=== PATIENT | female | born 1990 | race Caucasian/White ===

== ENCOUNTER 2020-02-10 11:39 | Outpatient (CLI) | payer OTHER, SELFPAY ==
[2020-02-10 12:21] LABS: Hematocrit 39.3 % (37.0-47.0); Hemoglobin 13.5 g/dL (12.0-15.0); Mean Corpuscular HGB Conc 34.4 g/dl (32-36); Mean Corpuscular Hemoglobin 30.5 pg (26-34); Mean Corpuscular Volume 88.7 fl (80-100); Platelet Count Result 143 k/mm3 (150-375); Red Blood Count 4.43 M/mm3 (4.2-5.4); Red Cell Distribution Width 13.3 % (11.5-14.5); White Blood Count 9.5 K/mm3 (4.5-10.0)
[2020-02-12 09:26] LABS: Rapid Plasma Reagin Non-Reactive (NonReactive)
== END 2020-02-10 11:40 | disposition home or self-care (01) ==
PROVIDERS: Visit Provider Obstetrics & Gynecology
DX: Z34.93 Encounter for supervision of normal pregnancy, unspecified, third trimester (principal); Z3A.00 Weeks of gestation of pregnancy not specified
CPT/HCPCS: 36415; 85027; 86592; 86900; 86901

== ENCOUNTER 2020-02-12 05:39 | Inpatient (IN) | payer OTHER, SELFPAY ==
--- NOTE | 2020-02-11 11:41 | WPDANESEPP ---
Anes - Eval Pre Procedure Procedure: Operation Date: 02/12/20 07:30 Proposed Procedures p Repeat Section - Teddy Riojas MD Date/Time: 02/11/20 11:41 Pre Op Diagnosis: c section Patient Data Age: 29 Gender: F Height: Weight: Allergies Allergy/AdvReac Type Severity Reaction Status Date / Time No Known Allergies Allergy Unverified 08/14/17 12:34 Home Medications Medication Instructions Recorded Confirmed Type PNV cmb#95-ferrous fumarate-FA 1 tablet PO DAILY 01/19/20 01/19/20 History [] Patient hx anesthesia problems: none Family hx anesthesia problems: none PMFSH Past Medical History Medical History Back pain Psoriasis Family History Family History Other No pertinent family history Social History Social History Smoking status: Never smoker Second hand tobacco smoke exposure: No Alcohol intake: never Substance use: never Gender identity (if verbalized by the patient): Female Spiritual care concerns: No Exam Day of Procedure 02/11/20 11:41
[2020-02-12] VITALS (59 sets, daily range): BP systolic 89–129; BP diastolic 22–76; PULSE 60–145; RESP 11–20; TEMP 36.3–36.6; O2SAT 98–100; BMI 30.6
[2020-02-12] MEDS: LACTATED RINGERS 1,000 ML 125 ML IV CONT ×2 (06:16→06:59)
--- NOTE | 2020-02-12 06:29 | LDADM ---
This patient, Emily Early, was admitted to Labor/Delivery/Recovery 120 on 02/12/20 at 05:39. Plans for labor, pain management and were discussed with patient. Patient/family oriented to hospital policies and general routines including ID bracelet, bed and alarms, visiting hours, pain management, procedures, bathroom and other care routines, personal items, smoking policy, room service/diet and guest tray routines, infant security routines, and visiting hours. Patient/Family are encouraged to report perceived risks to care and to ask questions if they do not understand what they are told or what they should do. See OBIX for further documentation.
--- NOTE | 2020-02-12 07:02 | WPDANESEFPP ---
Anes - Eval Final PreProcedure Day of Procedure 02/12/20 07:02 Patient weight: overweight Heart: regular rate and rhythm Lungs: clear to auscultation Airway: Mallampati scale class II Neurological: alert and oriented Last oral intake: >/= 8 hours ASA classification: II Emergent: no Anesthetic plan: proceed Anesthesia type and monitoring: regional spinal and standard monitoring Informed Consent: The patient's anesthetic plan and its attendant risks and benefits were discussed with the patient/family/POA. Questions were solicited and answers provided to the satisfaction of the patient/family/POA.
--- NOTE | 2020-02-12 07:14 | PM.IMHP ---
H&P: HPI History of Present Illness Chief complaint: c section Narrative: Emily Early is a 29 year old female 2 para 1001 at 39 weeks gestation who presents for repeat delivery. She has a history of 1 previous delivery. She has no other complaints. She reports good movement. She denies any nausea, vomiting, fever, chills. She denies any chest pain or shortness of breath. She denies any loss of fluid, vaginal bleeding, contractions. Review of Systems Constitutional: Constitutional: Reports no additional constitutional complaints, Denies fatigue, Denies headache(s), Denies lethargy and Denies weakness Eyes: Eyes: Reports no additional eye complaints, Denies blurry vision and Denies photophobia ENT: Reports as per HPI, Denies headache(s) and Denies neck pain Cardiovascular: Cardiovascular: Denies chest pain, Denies diaphoresis, Denies leg edema, Denies palpitations and Denies dyspnea Respiratory: Respiratory: Denies hemoptysis, Denies dyspnea and Denies wheezing Gastrointestinal: Gastrointestinal: Denies abdominal pain, Denies melena, Denies bloating, Denies hematochezia, Denies nausea and Denies vomiting Genitourinary: Genitourinary: Reports no additional female genitourinary complaints Musculoskeletal: Musculoskeletal: Denies joint swelling, Denies neck pain, Denies numbness and Denies stiffness Neurologic: Denies Abnormal speech present, Denies confusion, Denies headache(s), Denies numbness and Denies weakness Psychiatric: Psychiatric: Denies anxiety, Denies confusion, Denies depression, Denies homicidal ideation and Denies suicidal ideation Endocrine: Endocrine: Denies fatigue and Denies palpitations Allergic/Immunologic: Allergic/Immunologic: Denies wheezing PMFSH Past Medical History Medical History Back pain Psoriasis Family History Family History Other No pertinent family history Social History Social History Smoking status: Never smoker Second hand tobacco smoke exposure: No Alcohol intake: never Substance use: never Gender identity (if verbalized by the patient): Female Spiritual care concerns: No Meds Home Medications and Allergies Home Medications Medication Instructions Recorded Confirmed Type PNV cmb#95-ferrous fumarate-FA 1 tablet PO DAILY 01/19/20 01/19/20 History [] Allergies Allergy/AdvReac Type Severity Reaction Status Date / Time No Known Allergies Allergy Unverified 08/14/17 12:34 Vital Signs Vital Signs - 24 hr 02/12/20 05:53 02/12/20 06:01 02/12/20 06:16 Pulse Rate 86 94 93 Blood Pressure 129/68 111/67 116/73 02/12/20 06:31 02/12/20 06:46 Pulse Rate 78 78 Blood Pressure 114/76 112/75 Exam Const: General: healthy appearing, comfortable and no acute distress; No confusion Orientation/consciousness: No confusion Eyes: Direct Ophthalmoscopy: No photophobia Resp: Auscultation: clear to auscultation bilaterally, no rales, no rhonchi and no wheezes Cardio: Rate: regular rate Heart sounds: no click, no murmurs and no rubs GI: Inspection: non-distended GI Palp: No abdominal tenderness Auscultation: normal bowel sounds Neuro: General: No confusion Speech: No Abnormal speech present Extrem: General: normal to inspection, no pedal edema and no calf tenderness Assessment and Plan Assessment and plan (1) Previous section: Code(s): Z98.891 - History of uterine scar from previous surgery Status: Acute (2) Term : Code(s): Z34.90 - Encounter for supervision of normal , unspecified, unspecified trimester Status: Acute Assessment and Plan: This patient is a 29-year-old multiparous female at term with a history of previous . We have agreed to repeat the
[2020-02-12] MEDS: ceFAZolin 2 GM/D5W 50 ML 2 GM/50 ML BAG IVPB (07:37)
--- NOTE | 2020-02-12 08:15 | P.OP_ITS ---
Procedure Note - Detailed Date of procedure: 02/12/20 Pre-op diagnosis: c section Post-op diagnosis: same Procedure performed: low-transverse delivery Description of procedure: The patient was taken the operating room. She was prepped and draped in the dorsal supine position with leftward tilt after induction of spinal anesthetic. When anesthesia was found to be adequate a low- transverse skin incision was made and carried down to the level the fascia with the knife. The fascial incision was made at the midline with a scalpel. The fascial incision was extended laterally with King scissors. The fascia was tented upward superior and inferior with Chacorta clamps. The rectus muscles were dissected off bluntly. The rectus muscles at the midline. The preperitoneal fat was dissected bluntly at the superior aspect of the separate the rectus muscles. The peritoneal cavity was entered bluntly in the same area. The peritoneal incision was extended superior and inferior with good visualization of bladder. Bladder blade was inserted. A low-transverse incision was made on the uterus with the scalpel. It was carried down the level of the amniotic cavity with a knife. The amniotic cavity bluntly. The uterine incision was made laterally with blunt traction. The infant was delivered. The cord was clamped and cut. The was handed off to waiting pediatric staff. Cord bloods were obtained. The placenta was removed manually. The uterus was exteriorized. Uterus cleared of all clots and debris. Uterus closed in 0 Vicryl in a running locked fashion. An imbricating layer of 0 Vicryl was also placed on the to bolster the closure. The uterus was returned to the abdomen. The gutters were cleared of all clots and debris. The fascia was closed 0 Vicryl in a running fashion. Subcutaneous tissue was irrigated and bleeding areas were cauterized. The skin was closed with subcuticular absorbable mónica. The incision was covered with derma connell. The patient tolerated the procedure well. She was taken recovery room stable condition. Sponge, lap, needle counts were correct x2. Anesthesia: spinal Surgeon: Teddy Riojas MD Estimated blood loss (mL): 1,125 Drains: No Packing: No Pathology: none sent Complications: No immediate complications Condition: stable Disposition: floor Findings: Normal maternal anatomy. Average size with normal Apgars. No gross evidence of abruption.
[2020-02-12] MEDS: OXYTOCIN 30 UNITS/NS 500 ML 30 UNITS/500 ML BAG 125 UNITS (08:42)
[2020-02-12] MEDS: OXYTOCIN 30 UNITS/NS 500 ML 30 UNITS/500 ML BAG 125 UNITS IV CONT (08:45)
--- NOTE | 2020-02-12 12:30 | PC.NURSE ---
Mother called out for observation of latch. Mother reports struggling with latch with first child. Reviewed feeding cues, frequencies, duration of feedings, feeding elimination flow sheet, and signs of adequate intake. Demonstrated stimulation techniques to wake for feeding. Assisted with infant to breast. Reviewed positioning/alignment in cross cradle, holding breast in U hold and guided asymmetrical latch on. Discussed rational for each. Infant was able to latch correctly. nursed eagerly, with steady draws and frequent swallowing noted. Reviewed signs of a correct latch, effective nursing and suck swallow ratio. Advised to stimulate to keep infant awake and nursing effectively for increased intake and assist in maintaining deep latch. was able to maintain latch without discomfort to mother. Nipple care reviewed. Instructed mother to call out for RN assistance if she is unable to latch infant for feeding or she has discomfort with nursing. Instructed feeding should be initiated three hours from start of last feeding or if feeding cues are noted before. Mother voiced understanding of information shared.
[2020-02-12] MEDS: DEXTROSE 5%/0.45% SOD CHL 1,000 ML 125 ML IV CONT (13:28)
--- NOTE | 2020-02-12 15:10 | PC.NURSE ---
Mother called out for assist with latch. Demonstrated stimulation techniques to wake infant for feeding. Assisted with to breast. Reviewed positioning/alignment in cross cradle, holding breast in U hold and guided asymmetrical latch on. Discussed rational for each. Several attempts before infant was able to latch correctly and without discomfort to mother. nursed eagerly with steady draws and occasional swallowing for short bursts followed with pausing and falling asleep. Switched to football positioning. Infant more awake and nursing consistently. Advised to stimulate to keep infant awake and nursing effectively for increased intake and assist in maintaining deep latch. Infant was able to maintain latch without discomfort to mother. Nipple care reviewed. Instructed mother to call out for RN assistance if she is unable to latch infant for feeding or she has discomfort with nursing. Instructed feeding should be initiated three hours from start of last feeding or if feeding cues are noted before. Mother voiced understanding of information shared.
[2020-02-12] MEDS: MULTIVIT/MIN/PREN/FOL AC/IRON TABLET 1 TAB PO (15:24)
[2020-02-12] MEDS: DOCUSATE SODIUM 100 MG CAPSULE PO (15:24)
[2020-02-12] MEDS: ACETAMINOPHEN 325 MG TABLET 650 MG PO (17:26)
[2020-02-12] MEDS: IBUPROFEN 600 MG TABLET PO (17:26)
[2020-02-13 00:50] VITALS: BP 109/61; PULSE 66; RESP 14; TEMP 36.1; O2SAT 100
[2020-02-13] MEDS: IBUPROFEN 600 MG TABLET PO ×4 (03:34→23:30)
[2020-02-13 05:00] VITALS: BP 107/69; PULSE 67; RESP 14; TEMP 36.2; O2SAT 100
[2020-02-13 05:37] LABS: Basophils Percent Auto 0.3 % (0.2-1.2); Eosinophils Percent Auto 0.2 % (0-4.4); Hematocrit 31.3 % (37.0-47.0); Hemoglobin 10.6 g/dL (12.0-15.0); Immature Granulocyte Absolute 0.08 K/mm3 (0.00-0.031); Immature Granulocyte Percent A 0.7 % (0-0.5); Lymphocytes Absolute Auto 1.15 K/mm3 (0.9-3.2); Lymphocytes Percent Auto 9.7 % (18.3-44.2); Mean Corpuscular HGB Conc 33.9 g/dl (32-36); Mean Corpuscular Volume 88.7 fl (80-100); Mean Platelet Volume 12.2 fl (7.4-10.4); Monocytes Absolute Auto 0.7 K/mm3 (0.1-0.6); Monocytes Percent Auto 5.6 % (2.6-8.5); Neutrophils Absolute Auto 9.9 K/mm3 (1.3-6.7); Neutrophils Percent Auto 83.5 % (45.5-73.1); Platelet Count Result 117 k/mm3 (150-375); Red Blood Count 3.53 M/mm3 (4.2-5.4); Red Cell Distribution Width 13.4 % (11.5-14.5); White Blood Count 11.9 K/mm3 (4.5-10.0)
--- NOTE | 2020-02-13 07:58 | PM.OBPNVD ---
OB - PN: Subj Subjective Date/time seen: 02/13/20 07:58 Patient comments: no complaints, pain well controlled, tolerating diet and flatus present OB - PN: Obj Data Labs CBC & Chem 7: 02/13/20 05:14 Labs: Laboratory Results - last 24 hr 02/13/20 05:14 WBC 11.9 H RBC 3.53 L Hgb 10.6 L Hct 31.3 L MCV 88.7 MCH 30.0 MCHC 33.9 RDW 13.4 Plt Count 117 L MPV 12.2 H Immature Gran % (Auto) 0.7 H Neut % (Auto) 83.5 H Lymph % (Auto) 9.7 L [place] % (Auto) 5.6 Eos % (Auto) 0.2 Baso % (Auto) 0.3 Lymph # (Auto) 1.15 [place] # (Auto) 0.7 H Eos # (Auto) 0.0 Baso # (Auto) 0.0 Abs Immat Gran (auto) 0.08 H Absolute Neuts (auto) 9.9 H Absolute Nucleated RBC 0.0 Nucleated RBC % 0.0 OB - PN A/P Plan day: 1 Comments: Post Op LTCS - no problems, routine recovery Time Spent With Patient Time: Total time spent is greater than 50% in coordination of care (as documented) at patient's floor/unit and/or counseling patient: Exam Const: General: cooperative, healthy appearing, comfortable and no acute distress Resp: Auscultation: no crackles, no rales, no rhonchi and no wheezes Cardio: Rhythm: regular rhythm Heart sounds: no click and no murmurs GI: Inspection: non-distended Auscultation: normal bowel sounds Extrem: General: normal to inspection, no pedal edema and no calf tenderness
[2020-02-13] MEDS: SIMETHICONE 80 MG TAB.CHEW PO ×2 (07:59→17:32)
[2020-02-13] MEDS: DOCUSATE SODIUM 100 MG CAPSULE PO ×2 (07:59→17:32)
[2020-02-13] MEDS: MULTIVIT/MIN/PREN/FOL AC/IRON TABLET 1 TAB PO (07:59)
[2020-02-13 08:00] VITALS: BP 124/71; PULSE 56; RESP 20; TEMP 36.5
--- NOTE | 2020-02-13 13:00 | PC.NURSE ---
Mother called out for assist with feeding. Mother reports she struggles with latching correctly. Demonstrated stimulation techniques to wake infant for feeding. Assisted with infant to breast. Reviewed positioning/alignment in football, holding breast in C hold and guided asymmetrical latch on. was able to latch correctly with first attempt. Mother reports slight tenderness with this feeding. nursed eagerly, with steady draws and frequent swallowing noted. Reviewed signs of a correct latch, effective nursing and suck swallow ratio. Infant was able to maintain latch without discomfort to mother. Nipple care reviewed. Suggested mother stimulate to keep awake and nursing effectively to increase intake and assist with maintaining deep latch. Demonstrated how to adjust latch more deeply while feeding. Instructed mother to call out for RN assistance if she is unable to latch infant for feeding or she has discomfort with nursing. Instructed feeding should be initiated three hours from start of last feeding or if feeding cues are noted before. Mother voiced understanding of information shared.
--- NOTE | 2020-02-13 14:10 | WPDANLDNPN2 ---
Anes-Prog Note L&D-Neuraxial Date/Time: 02/13/20 14:10 Neuraxial medications: intrathecal PF morphine Opiod-related complaints: none Patient feedback: Patient satisfied with post-operative pain management.
--- NOTE | 2020-02-13 14:10 | WPDANLDPN2 ---
Anes-Prog Note L&D Date/Time: 02/13/20 14:10 Comfortable throughout: section Neuraxial method: spinal Epidural/Spinal procedure site: clean & non-tender Neuro status: Neuro function grossly intact. Cardiovascular status: normal Respiratory status: normal Airway patency: baseline Mental status: baseline Post-Op hydration status: normal Vital Signs: Last Vital Signs Temp 36.5 C 02/13/20 08:00 Pulse 56 L 02/13/20 08:00 Resp 20 02/13/20 08:00 BP 124/71 02/13/20 08:00 Pulse Ox 100 02/13/20 05:00 I/O: Intake & Output 02/12/20 02/13/20 02/13/20 23:59 07:59 15:59 Intake Total 1250 1250 1600 Output Total 850 2100 600 Balance 400 -850 1000 Post-procedural complaints: none Patient feedback: Patient satisfied with anesthetic care.
[2020-02-13 20:20] VITALS: BP 119/72; PULSE 65; RESP 16; TEMP 36.8; O2SAT 100
--- NOTE | 2020-02-14 07:24 | PM.OBPNVD ---
OB - PN: Subj Subjective Date/time seen: 02/14/20 07:24 Patient comments: no complaints baby status: doing well OB - PN: Obj Data Labs CBC & Chem 7: 02/13/20 05:14 OB - PN A/P Plan day: 2 Plan: discharge home Time Spent With Patient Time: Total time spent is greater than 50% in coordination of care (as documented) at patient's floor/unit and/or counseling patient: Exam Const: General: comfortable Resp: Effort & Inspection: normal respiratory effort Psych: Appearance: grossly normal Affect: normal affect
--- NOTE | 2020-02-14 07:25 | PM.OBDSVD ---
DS: Diagnosis Admitting Diagnosis Admitting Diagnosis: History of uterine scar from previous surgery OB - DS: Summary OB Procedures : None OB Procedures Intrapartum: OB Procedures: : None Peripartum Data Procedures: Procedures Operation Date: 02/12/20 07:30 Actual Procedures Side Surgeon p Repeat Section Teddy Riojas MD Time Spent with Patient Time attestation: Total time spent providing and/or coordinating discharge services: Discharge Plan Discharge Attending physician on discharge: Teddy Riojas Discharging Clinician: Sofia Dela Cruz Patient Disposition: Home, Self-Care Activity: pelvic rest Diet: regular Wound Care Instructions: follow printed instructions Patient Instructions: Antibiotic Form Stand Alone Forms: General Discharge Information Follow-up/Referrals: Teddy Riojas MD [Family Provider] - 1 Week Discharge Medications: New hydrocodone-acetaminophen 5-325 mg Tablet 1 tab PO Q3H PRN (Reason: Moderate Pain (4-6)) Qty: 15 RF: 0 Continued PNV cmb#95-ferrous fumarate-FA [] 28 mg iron- 800 mcg Tablet 1 tablet PO DAILY RF: 0 Date of admission: 02/12/20 05:39 Primary Care Provider: UNKNOWN,DOCTOR Admitting Provider: Teddy Riojas Attending physician on admission: Teddy Riojas
[2020-02-14 08:20] VITALS: BP 126/71; PULSE 72; RESP 18; TEMP 37.1; O2SAT 100
--- NOTE | 2020-02-14 09:30 | PC.NURSE ---
Mother is able to independently latch infant with appropriate positioning/alignment. She denies any nipple discomfort, is feeding as required and waking to feed if needed. has had 8 effective feedings in the past 24 hours, and is currently meeting outcomes for weight, output, jaundice and feeding frequencies. Mother states she feels confident to continue effective at home and states her milk is transitioning in. Reviewed transition to breast milk, signs of adequate intake, and engorgement/relief. Instructed to call ICP if intake/output less than required. Reviewed regular medications mother is taking. Information provided per Mia. Reviewed community resources on the [facility] website and in the Mom/Baby guide. Information on outpatient services provided. Mother has no further questions at this time.
[2020-02-14] MEDS: MULTIVIT/MIN/PREN/FOL AC/IRON TABLET 1 TAB PO (09:42)
[2020-02-14] MEDS: DOCUSATE SODIUM 100 MG CAPSULE PO (09:42)
--- NOTE | 2020-02-14 11:51 | PC.NURSE ---
Mom and dad watched discharge video prior to leaving.
[2020-02-15 08:32] VITALS: BP 111/65; PULSE 65; RESP 20; TEMP 36.7
== END 2020-02-14 11:32 | disposition home or self-care (01) | DRG 788 ==
LOC: ANHLDR 05:57 → ANHOB2 10:50
PROVIDERS: Admitting Provider Obstetrics & Gynecology; Family Provider Obstetrics & Gynecology; Visit Provider Obstetrics & Gynecology
PROC: 10D00Z1 Extraction of Products of Conception, Low, Open Approach (ICD-10-PCS; CPT 59514; principal; 2020-02-12 07:30)
DX: O34.211 Maternal care for low transverse scar from previous cesarean delivery (principal); Z3A.39 39 weeks gestation of pregnancy; Z37.0 Single live birth; O69.81X0 Labor and delivery complicated by cord around neck, without compression, not applicable or unspecified; Z23 Encounter for immunization
CPT/HCPCS: 36415; 85025; A9270; J0131; J0690; J1200; J2274; J2370; J2405; J2590; J7120

== ENCOUNTER → 2020-08-16 16:24 | Outpatient (CLI) | payer OTHER, SELFPAY ==
--- NOTE | ~2020-08-16 | MR_ITS ---
EXAMINATION: MR foot LT wo con DATE: 08/16/2020 17:52 INDICATION: Inferior left heel pain. TECHNIQUE: Magnetic resonance imaging (MRI) of the left foot was performed without intravenous contra st. Sequences included sagittal PD-weighted FS FSE, sagittal PD-weighted FSE, coronal PD-weighted FS FSE, coronal PD-weighted FSE, axial PD-weighted FS FSE, and axial PD-weighted FSE. COMPARISON: None. FINDINGS: Medial ankle ligaments: The superficial and deep components of the deltoid ligament are normal. Lateral ankle ligaments: There are changes of prior sprain of anterior talofibular ligament characterized by increased signal intensity. Calcaneofibular ligament and posterior talofibular ligament are normal. There are changes of prior sprain of anterior tibiofibular ligament characterized by thickening and increased signal in tensity. Posterior tibiofibular ligament is normal. Tendons: The medial and anterior ankle tendons are normal. The peroneal tendons are normal. Achilles tendon is normal. Plantar fascia: There is mild thickening of central band of the plantar fascia. There is a defect in the central band of the plantar fascia. Bones/other: Bone alignment is normal. No fracture. The talar dome is normal. Bone marrow signal intensity is norm al. Fluid: There is no joint effusion. IMPRESSION: 1. Mild plantar fasciitis. A defect in the central band of the plantar fascia is likely from fascioto my. Reviewed, dictated and finalized at location A. IMPRESSION: 1. Mild plantar fasciitis. A defect in the central band of the plantar fascia i s likely from fasciotomy.
== END ==
PROVIDERS: Visit Provider Podiatrist Foot & Ankle Surgery
DX: M79.672 Pain in left foot (principal); M72.2 Plantar fascial fibromatosis
CPT/HCPCS: 73718

== ENCOUNTER → 2023-06-11 07:18 | Outpatient (CLI) | payer BC, SELFPAY ==
--- NOTE | ~2023-06-11 | US_ITS ---
EXAMINATION: US breast LT limited HISTORY: Mass of the lower-outer quadrant of the left breast TECHNIQUE: Limited left breast ultrasound is performed. FINDINGS: No suspicious cystic or solid mass is identified in the area of clinical concern. Normal fi broglandular tissue is seen. IMPRESSION: No specific sonographic correlate is identified for the reported palpable abnormality of concern. Fur ther evaluation at this time should be based on clinical assessment. Continued follow-up physical exa mination is recommended. BI-RADS Category 1: Negative Reviewed, dictated and finalized at location A. IMPRESSION: No specific sonographic correlate is identified for the reported palpable abnor mality of concern. Further evaluation at this time should be based on clinical assessment. Continued follow-up physical examination is recommended. BI-RADS Category 1: Negative
== END ==
DX: N63.23 Unspecified lump in the left breast, lower outer quadrant (principal)
CPT/HCPCS: 76642

== ENCOUNTER 2024-09-11 14:34 | Outpatient (CLI) | payer OTHER, SELFPAY ==
[2024-09-11 14:50] LABS: Hematocrit 37.3 % (37.0-47.0); Hemoglobin 12.7 g/dL (12.0-15.0); Mean Corpuscular Hemoglobin 30.1 pg (26-34); Mean Corpuscular Volume 88.4 fl (80-100); Mean Platelet Volume 12.3 fl (7.4-10.4); Platelet Count Result 129 k/mm3 (150-375); Red Blood Count 4.22 M/mm3 (4.2-5.4); White Blood Count 10.3 K/mm3 (4.5-10.0)
[2024-09-11 17:18] LABS: Rapid Plasma Reagin Non-Reactive (NonReactive)
== END 2024-09-11 14:35 | disposition home or self-care (01) ==
LOC: ANHLAB 14:36
PROVIDERS: Visit Provider Obstetrics & Gynecology
DX: Z34.93 Encounter for supervision of normal pregnancy, unspecified, third trimester (principal); Z3A.00 Weeks of gestation of pregnancy not specified
CPT/HCPCS: 36415; 85027; 86592; 86850; 86900; 86901

== ENCOUNTER 2024-09-12 10:00 | Inpatient (IN) | payer OTHER, SELFPAY ==
[2024-09-12] VITALS (62 sets, daily range): BP systolic 93–126; BP diastolic 45–72; PULSE 58–91; RESP 14–22; TEMP 36.3–36.8; O2SAT 97–100; BMI 32.8
--- NOTE | 2024-09-12 08:45 | P.HP_ITS ---
H&P: HPI History of Present Illness Date/Time: 09/12/24 08:45 Chief Complaint: Here for repeat Narrative: 34 y/o at 39 5/7 weeks with 2 prior deliveries, here for repet. GBS neg. Review of Systems Review of Systems: All systems reviewed & are unremarkable except as noted in HPI and below PMFSH Past Medical History Medical History Back pain Psoriasis Surgical History Surgical History History of x2 History of foot surgery Family History Family History Other Hypertension Diabetes mellitus Other No pertinent family history Social History Social History Smoking status: Never smoker Second hand tobacco smoke exposure: No Alcohol intake: current Substance use: never Occupation/Education: occupation Additional occupation/education comments: Teacher Gender identity (if verbalized by the patient): Female Spiritual care concerns: No Meds Home Medications and Allergies Home Medications Medication Instructions Recorded Confirmed Type vit no.95-ferrous 1 tablet PO DAILY 01/19/20 01/19/20 History fumarate 28 mg-folic acid 800 mcg tablet () Allergies Allergy/AdvReac Type Severity Reaction Status Date / Time No Known Allergies Allergy Verified 03/27/20 08:14 Exam Const: Orientation/consciousness: patient oriented x3 Other: Well-developed, well-nourished female in no acute distress. Neck: Thyroid: thyroid normal Lymphatic: no lymphadenopathy noted (in neck, axilla or inguinal nodes) Resp: Effort & Inspection: normal respiratory effort Auscultation: clear to auscultation bilaterally Cardio: Rate: regular rate Rhythm: regular rhythm Heart sounds: S1 normal heart sound present and S2 normal heart sound present GI: Other: ABD: Soft, nontender, nondistended, gravid. Likely breech presentation. FHR auscultated. No guarding or rebound tenderness. No hepatosplenomegaly. : General: Yes no CVA tenderness Other: Cervix closed / thick Back/Spine/Pelvis: Back: no CVA tenderness Skin: General skin exam: normal color and no rashes or lesions noted Neuro: General: patient oriented x3 Extrem: Other: Extremities: nontender with no edema Psych: Mental Status: mental status grossly normal Affect: normal affect Assessment and Plan Assessment and plan (1) Term : Code(s): Z34.90 - Encounter for supervision of normal , unspecified, unspecified trimester Status: Acute Assessment and Plan: A: IUP at 39 5/7 weeks with prior x2. P: Offered repeat . She understands risks of surgery to include risks of anesthesia, risks of pain, infection, bleeding, blood products, thromboembolic phenomena and damage to adjacent structures such as bowel, b ladder, ureters, blood vessels and nerves. She understands all these risks and elects to proceed with surgery. (2) Previous section: Code(s): Z98.891 - History of uterine scar from previous surgery Status: Acute
[2024-09-12] MEDS: ACETAMINOPHEN 500 MG TABLET 1000 MG PO (11:05)
[2024-09-12] MEDS: LACTATED RINGERS 1,000 ML 125 ML IV CONT ×3 (11:10→13:34)
[2024-09-12 11:22] LABS: Rapid Plasma Reagin Non-Reactive (NonReactive)
[2024-09-12 11:56] LABS: HIV 1/2 Ab P24 Ag Result Negative (Negative)
--- NOTE | 2024-09-12 12:08 | WPDHPUPDATE1 ---
History and Physical Update Update Date/Time: 09/12/24 12:08 History and Physical has been reviewed, including an updated exam of the patient. There are NO changes in the patient's condition. Risks, benefits, and alternatives have been discussed and questions answered. Patient agrees to proceed with procedure.
[2024-09-12] MEDS: ONDANSETRON INJ 4 MG/2 ML VIAL IV PUSH (13:56)
[2024-09-12] MEDS: FAMOTIDINE 20 MG/2 ML VIAL IV PUSH (13:56)
[2024-09-12] MEDS: ceFAZolin 2 GM/D5W 50 ML 2 GM/50 ML BAG IVPB (13:56)
--- NOTE | 2024-09-12 15:17 | P.PCNOB_ITS ---
OB - Delivery Note Procedure Delivery date: 09/12/24 Pre-op diagnosis: Previous Delivery Post-op Diagnosis: Same (1) IUP at 39 5/7 weeks; 2) Prior , desires repeat) Delivery monitor: External FHT and External Uterine Procedure Performed: Repeat Surgeon: Jony Kwong MD Anesthesia type: Spinal Description of Procedure/Findings: The patient was taken to the operating room where she was prepared and draped in the usual sterile fashion in dorsal supine position with a leftward tilt. She received cefazolin preoperatively. Spinal anesthesia was found to be adequate. A Pfannenstiel skin incision was made along the previous scar line and was carried through to the underlying layer of the fascia. The fascia was incised in the midline and the incision was extended laterally. The fascia was dissected free of the underlying rectus muscles. The rectus muscles were in the midline. The peritoneum was identified, tented up and entered sharply. The peritoneal incision was extended superiorly and inferiorly with good visualization of the bladder. The bladder blade was placed. The vesicouterine peritoneum was identified, tented up and entered sharply. The incision was extended laterally and the bladder flap was developed. The bladder blade was replaced. The uterus was then incised sharply in a transverse fashion along the lower uterine segment. The incision was extended laterally. The infant's head was delivered atraumatically to the sterile field, followed by the body. The nose and mouth were bulb suctioned. After a delay, the cord was clamped and cut. The was handed off the field. Cord blood was collected. The placenta was removed manually and was passed off the field. The uterus was cleared of all clots and debris. The uterine incision was reapproximated using 0 Monocryl in a running, locked fashion. Excellent hemostasis resulted as did excellent reapproximation of the normal anatomy. The pelvis was irrigated copiously with warmed normal saline. Rigorous hemostasis was assured. The fascial layer was reapproximated using 0 Vicryl in a running fashion. The skin was closed with a running, subcuticular stitch of 4 0 Vicryl. Dermaflex was applied externally. Sponge, lap, needle and instrument counts were correct. The patient was taken to the recovery room in stable condition. The went to the nursery in stable condition. I was present and scrubbed the entire procedure. Specimen: Yes (cord blood) Estimated Blood Loss: 655 Drains: Yes (farris) Packing: No Pathology: Yes (cord blood) Complications: None Condition: Stable Disposition: PACU [place] Baby Date of : 09/12/24 Time of : 14:46 Gestational Age by Date: 39 Infant gender: Female Weight (pounds): 8 Weight (ounces): 13 presentation: vertex Placenta delivery description: Manual Removal and Normal Configuration Cord Vessel Description: 3 Vessels and Delayed Cord Clamping score one minute: 8 score five minutes: 9
--- NOTE | 2024-09-12 15:19 | P.DS_ITS ---
DS: Admitting Diagnosis Discharge Date 09/14/24 Admitting Diagnosis IUP at 39 5/7 weeks Prior DS: Discharge Diagnosis Discharge Diagnosis (1) delivery delivered: Code(s): O82 - Encounter for delivery without indication Status: Acute OB - DS: Summary OB Procedures : None OB Procedures Intrapartum: OB Procedures: : None Peripartum Data Procedures: Procedures Operation Date: 09/12/24 12:00 <No data on this case meets the specified criteria> Time Spent with Patient Time attestation: Total time spent providing and/or coordinating discharge services: DS: Data Data Completed and Pending Labs on day of discharge: Labs from last 24 hours 09/12/24 10:56 RPR Non-reactive HIV 1&2 Ab/P24 Ag 4thGn Negative Discharge Plan Discharge Attending physician on discharge: Jony Kwong Discharging Clinician: Jony Kwong Patient Disposition: Home, Self-Care Activity: may shower, may drive after 2 weeks and pelvic rest Diet: regular Wound Care Instructions: incision open to air Discharge Instructions: Education: Mom and Baby Guide Given to: Mother Follow-Up: Call your delivering provider's office for an appointment to be seen in: 4 Weeks Mom and baby should come to the [facility] for the follow-up appointment. Appointment Date/Time: September 16, 2024 at 2:30 pm What to expect at your follow-up visit: Blood Pressure Check Physical Assessment Call [phone] if you are unable to keep your appointment time. BREAST CARE: * Wear a snug supportive bra. * For engorgement discomfort: Breast Feeding: * Apply warm moist washcloths * Express milk as needed to relieve engorgement * Wear loose clothing Bottle Feeding: * May apply ice packs * For sore nipples: * Identify correct latch-on * Apply warm moist washcloths before and after nursing * Air dry nipples after nursing * May apply Lansinoh cream to nipples ABDOMINAL INCISION: (if applicable) * Allow incision to air dry * Do NOT use lotions for powders on your incision * When showering, allow soap and water to run over the incision, but do not wash incision EPISIOTOMY/PERINEAL CARE: * Until bleeding stops, use your humaira bottle after urinating * Change your pad frequently throughout the day * You may take sitz baths several times a day (fill your bathtub with warm water and soak for 20 minutes.) Do NOT bathe in the water * No tub baths until seen by your physician - You may shower ACTIVITY: * Rest as much as possible. * Do not exercise or lift anything heavier than your baby (such as laundry or other children.) * Avoid stairs or driving as much as possible. * Do not put anything into the vagina. No douching, tampons, or sexual activity until seen by physician. NOTIFY PHYSICIAN IF YOU HAVE ANY QUESTIONS OR IF ANY OF THE FOLLOWING SYMPTOMS OCCUR: * If your episiotomy or incision becomes red, swollen, or more painful than what you have experienced in the hospital. * If your vaginal bleeding becomes foul smelling. * If your vaginal bleeding becomes more heavy than a period or if your bleeding changes from pink to bright red. However, you may pass an occasional walnut- sized clot once or twice for the first week . * If you experience a sharp, shooting pain in you calves. * If you discover a hard, reddened area on your breast or if you experience flu- like symptoms. DIET: * Eat regular, well-balanced meals. * Drink plenty of fluids daily. If , drink to thirst. Call or return if temperature above 100.4? F, increased abdominal pain, increased vaginal bleeding or any new problems. Stand Alone Forms: General Discharge Information Follow-up/Referrals: Jony Kwong MD [Physician] - 4 Weeks Discharge Medications: New ibuprofen 600 mg tablet 600 mg PO Q6H PRN (Reason: cramps) Qty: 30 0RF hydrocodone-acetaminophen 5-325 mg tablet 1 - 2 tablet PO Q6H PRN (Reason: pain) Qty: 30 0RF Continued PNV cmb#95-ferrous fumarate-FA [] 28 mg iron- 800 mcg Tablet 1 tablet PO DAILY Date of admission: 09/12/24 10:00 Primary Care Provider: Martin Romero Admitting Provider: Jony Kwong Attending physician on admission: Jony Kwong Condition: Stable
--- NOTE | 2024-09-12 17:36 | OBPPTRN ---
Patient transferred to post room #280 via stretcher. Support person present. Oriented to unit, room, information board, rooming in, admission packet and security measures. Patient verbalizes understanding.
[2024-09-12] MEDS: OXYTOCIN 30 UNITS/NS 500 ML 30 UNITS/500 ML BAG 125 UNITS IV CONT (17:39)
[2024-09-12] MEDS: DEXTROSE 5%/0.45% SOD CHL 1,000 ML 125 ML IV CONT (21:00)
[2024-09-13] MEDS: KETOROLAC 15 MG/ML VIAL (*BKC) IV PUSH ×2 (00:22→06:39)
[2024-09-13] MEDS: ACETAMINOPHEN 325 MG TABLET 650 MG PO ×4 (00:22→19:30)
[2024-09-13 05:04] LABS: Basophils Percent Auto 0.3 % (0.2-1.2); Eosinophils Percent Auto 0.4 % (0-4.4); Hematocrit 32.7 % (37.0-47.0); Immature Granulocyte Absolute 0.04 K/mm3 (0.00-0.031); Immature Granulocyte Percent A 0.4 % (0-0.5); Lymphocytes Absolute Auto 1.04 K/mm3 (0.9-3.2); Lymphocytes Percent Auto 11.4 % (18.3-44.2); Mean Corpuscular HGB Conc 33.6 g/dl (32-36); Mean Corpuscular Hemoglobin 29.9 pg (26-34); Mean Corpuscular Volume 88.9 fl (80-100); Mean Platelet Volume 12.5 fl (7.4-10.4); Monocytes Absolute Auto 0.6 K/mm3 (0.1-0.6); Neutrophils Absolute Auto 7.4 K/mm3 (1.3-6.7); Neutrophils Percent Auto 81.5 % (45.5-73.1); Platelet Count Result 106 k/mm3 (150-375); Red Blood Count 3.68 M/mm3 (4.2-5.4); Red Cell Distribution Width 12.8 % (11.5-14.5); White Blood Count 9.1 K/mm3 (4.5-10.0)
[2024-09-13] MEDS: MULTIVIT/MIN/PREN/FOL AC/IRON TABLET 1 TAB PO (06:39)
[2024-09-13] MEDS: DOCUSATE SODIUM 100 MG CAPSULE PO ×2 (06:39→17:37)
[2024-09-13] MEDS: SIMETHICONE 80 MG TAB.CHEW PO ×3 (06:41→17:37)
[2024-09-13 08:05] VITALS: BP 124/68; PULSE 58; RESP 16; TEMP 36.4; O2SAT 100
[2024-09-13 12:15] VITALS: BP 119/60; PULSE 71; RESP 16; TEMP 36.2; O2SAT 100
[2024-09-13] MEDS: IBUPROFEN 600 MG TABLET PO ×2 (14:38→19:30)
--- NOTE | 2024-09-13 14:39 | P.PNOB_ITS ---
OB - PN: Subj Subjective Date/time seen: 09/13/24 14:39 Narrative: Pain OK. Tolerating diet. OB - PN: Obj Data Labs 09/13/24 03:38 Labs: Laboratory Results - last 24 hr 09/13/24 03:38 WBC 9.1 RBC 3.68 L Hgb 11.0 L Hct 32.7 L MCV 88.9 MCH 29.9 MCHC 33.6 RDW 12.8 Plt Count 106 L MPV 12.5 H Immature Gran % (Auto) 0.4 Neut % (Auto) 81.5 H Lymph % (Auto) 11.4 L [place] % (Auto) 6.0 Eos % (Auto) 0.4 Baso % (Auto) 0.3 Lymph # (Auto) 1.04 [place] # (Auto) 0.6 Eos # (Auto) 0.0 Baso # (Auto) 0.0 Abs Immat Gran (auto) 0.04 H Absolute Neuts (auto) 7.4 H Absolute Nucleated RBC 0.000 Nucleated RBC % 0.0 OB - PN A/P Plan day: 1 Comments: A: POD#1, doing well. P: Routine care. Exam Narrative: AVSS I/O OK ABD soft, nontender, fundus firm. Incision c/d/i. EXT nontender
--- NOTE | 2024-09-13 17:00 | WPDANLDPN2 ---
Anes-Prog Note L&D Date/Time: 09/13/24 17:00 Comfortable throughout: section Neuraxial method: epidural Epidural/Spinal procedure site: clean & non-tender Neuro status: Neuro function grossly intact. Cardiovascular status: normal Respiratory status: normal Airway patency: baseline Mental status: baseline Post-Op hydration status: normal Vital Signs: Last Vital Signs Temp 97.1 F L 09/13/24 12:15 Pulse 71 09/13/24 12:15 Resp 16 09/13/24 12:15 BP 119/60 09/13/24 12:15 Pulse Ox 100 09/13/24 12:15 O2 Del Method Room Air 09/12/24 19:42 Pain score (VAS): 0/10 I/O: Intake & Output 09/13/24 09/13/24 09/13/24 07:59 15:59 23:59 Output Total 2450 Balance -2450 Post-procedural complaints: none Patient feedback: Patient satisfied with anesthetic care.
--- NOTE | 2024-09-13 17:01 | WPDANLDNPN2 ---
Anes-Prog Note L&D-Neuraxial Date/Time: 09/13/24 17:01 Neuraxial medications: intrathecal PF morphine Opiod-related complaints: none Patient feedback: Patient satisfied with post-operative pain management.
[2024-09-13 19:34] VITALS: BP 131/87; PULSE 77; RESP 20; TEMP 36.7; O2SAT 100
[2024-09-14] MEDS: ACETAMINOPHEN 325 MG TABLET 650 MG PO ×2 (04:30→10:21)
[2024-09-14] MEDS: IBUPROFEN 600 MG TABLET PO ×2 (04:30→10:21)
[2024-09-14] MEDS: MULTIVIT/MIN/PREN/FOL AC/IRON TABLET 1 TAB PO (06:39)
[2024-09-14] MEDS: DOCUSATE SODIUM 100 MG CAPSULE PO (06:39)
[2024-09-14] MEDS: SIMETHICONE 80 MG TAB.CHEW PO (06:39)
[2024-09-14 07:25] VITALS: BP 130/83; PULSE 65; RESP 16; TEMP 36.6; O2SAT 100
--- NOTE | 2024-09-14 08:30 | PM.OBPNVD ---
OB - PN: Subj Subjective Date/time seen: 09/14/24 08:30 Narrative: Pain OK. Tolerating diet. Would like to go home. OB - PN: Obj Data Labs 09/13/24 03:38 OB - PN A/P Plan day: 2 Comments: A: POD#2, doing well. P: Home to f/u 4 weeks. Exam Narrative: AVSS ABD soft, nontender, fundus firm. Incision c/d/i. EXT nontender
[2024-09-16 14:13] VITALS: BP 127/81; PULSE 67; RESP 16; TEMP 36.4; O2SAT 100
== END 2024-09-14 10:29 | disposition home or self-care (01) | DRG 788 ==
LOC: ANHLDR 10:11 → ANHOB2 17:44
PROVIDERS: Admitting Provider Obstetrics & Gynecology; Visit Provider Obstetrics & Gynecology
PROC: 10D00Z1 Extraction of Products of Conception, Low, Open Approach (ICD-10-PCS; CPT 59514; principal; 2024-09-12 12:00)
DX: O34.211 Maternal care for low transverse scar from previous cesarean delivery (principal); Z37.0 Single live birth; Z3A.39 39 weeks gestation of pregnancy
CPT/HCPCS: 36415; 85025; 85027; 86592; 86703; 86850; 86900; 86901; A9270; G0432; J0690; J1885; J2274; J2405; J2590; J7120